=== PATIENT | female | born 1935 | race Caucasian/White ===

== ENCOUNTER → 2016-06-01 | Outpatient (CLI) | payer OTHER, MEDICARE ==
[~2016-06-01] MED LIST: IOPAMIDOL (ISOVUE-300) 100 ML BTL IV ONE
== END ==
LOC: FIMAGING 12:58
PROVIDERS: ATTEND Internal Medicine
DX: K86.89 Other specified diseases of pancreas (principal); N20.0 Calculus of kidney
CPT/HCPCS: 74178; Q9967

== ENCOUNTER → 2016-09-23 | Outpatient (CLI) | payer OTHER, MEDICARE | LOC: BMCIMAGING 10:11 | PROVIDERS: ATTEND Physician Assistant | DX: M25.562 Pain in left knee (principal); G89.29 Other chronic pain; M17.12 Unilateral primary osteoarthritis, left knee ==

== ENCOUNTER 2017-02-14 08:45 | Inpatient (IN) | payer OTHER, MEDICARE ==
[2017-02-28] MEDS ORDERED: LIDOCAINE 1% 2 ML INJ ONE (05:59)
[2017-02-28] MEDS ORDERED: LIDOCAINE 1% 2 ML INJ ID PRN (06:06)
[2017-02-28] MEDS ORDERED: LR 1,000 ML IV ONE (06:06)
[2017-02-28] MEDS ORDERED: ACETAMINOPHEN 500 MG TAB PO ONE (06:06)
[2017-02-28] MEDS ORDERED: LR 1,000 ML IV SCH (06:06)
[2017-02-28] MEDS ORDERED: ceFAZolin 2 GM/SWFI 2 GM/20 ML SYR IVP ONE (06:06)
--- NOTE | 2017-02-28 06:31 | PDHPUP ---
History & Physical Update H&P update statement: This history and physical update is based on an assessment of the patient which was completed after admission or registration (within 24 hours), but prior to the surgery/procedure.
--- NOTE | 2017-02-28 06:33 | PDIAF ---
- Diagnosis Diagnosis: left shoulder djd Code Status: Full Code - Medication Management Discharge Medications: Medications to Continue on Transfer Pantoprazole Sodium [Protonix 40mg (*)] 40 mg PO DAILY 03/05/09 [Last Taken 02/27] celeCOXIB [Celebrex (*)] 200 mg PO DAILY 03/05/09 [Last Taken 02/22/17] Calcium Carbonate/Vitamin D3 [CALCIUM 600 + VIT D TABLET] 1 each PO DAILY [Last Taken 02/22/17] Carboxymethylcellulose 1% [Refresh Celluvisc (*)] 1 drop EACHEYE DAILY PRN 01/25 [Last Taken 02/22/17] Cyanocobalamin [Vitamin B12 (*)] 1,000 mcg PO DAILY 01/25/17 [Last Taken ] Cyclobenzaprine [Flexeril 10 MG (*)] 5 - 10 mg PO HS 01/25/17 [Last Taken ] Herbals/Supplements -Info Only 1 ea PO DAILY 01/25/17 [Last Taken 02/22/17] Sertraline HCl [Zoloft 25mg (*)] 25 mg PO DAILY 01/25/17 [Last Taken 02/22/17] Discharge Medications: Refer to the Discharge Home Medication list for PRN reason. - Orders Services needed: Home Care, Physical Therapy, Occupational Therapy Home Care Face to Face: I certify that this patient was under my care and that I had the required [id number] encounter meeting the encounter requirements on the discharge day. My findings support the fact that the patient is homebound as defined in Home Care Face to Face Continued: CMS Chapter 7 Medicare Benefits Manual 30.1.1 , The condition of the patient is such that there exists a normal inability to leave home and consequently, leaving home would require a considerable and taxing effort. Activity/Weight Bearing Restrictions: pendulum rom. daily dressing changes. no lifting, pushing, pulling. f/u at two weeks as previously scheduled. seek attn for increasing pain, numbness, tingling, other focal complaints - Follow Up Care Current Providers and Referrals: Analy Orta MD [Primary Care Provider] -
[2017-02-28] MEDS ORDERED: D5W 1/2 NS W/ 20 KCl/L 1,000 ML IV SCH (06:45)
[2017-02-28] MEDS ORDERED: ONDANSETRON 4 MG/2 ML VIAL IVP PRN ×2 (06:45→07:57)
[2017-02-28] MEDS ORDERED: KETOROLAC 15 MG/1 ML SDV IVP ONE (06:45)
[2017-02-28] MEDS ORDERED: CARBOXYMETHYLCELLULOSE 1% 0.4 ML DROPERETTE EACHEYE PRN (06:48)
[2017-02-28] MEDS ORDERED: BUPIVACAINE/EPI 0.5% 30 ML SDV ONE (06:51)
[2017-02-28] MEDS ORDERED: PROPOFOL 200 MG/20 ML VIAL ONE (06:52)
[2017-02-28] MEDS ORDERED: MIDAZOLAM 2 MG/2 ML VIAL ONE (06:52)
[2017-02-28] MEDS ORDERED: BACITRACIN 50,000 UNITS/10 ML SYR IRR ONE (06:52)
[2017-02-28] MEDS ORDERED: fentaNYL 100 MCG/2 ML INJ ONE ×2 (06:52)
[2017-02-28] MEDS ORDERED: POLYMYXIN B SULFATE 500,000 UNIT/10 ML SYR IRR ONE (06:52)
--- NOTE | 2017-02-28 07:15 | PDANEPAE ---
ANE History of Present Illness left shoulder oa ANE Past Medical History - Cardiovascular History Hx Hypertension: No Hx Arrhythmias: No Hx Chest Pain: No Hx Coronary Artery / Peripheral Vascular Disease: No Hx CHF / Valvular Disease: No Hx Palpitations: No - Pulmonary History Hx COPD: No Hx Asthma/Reactive Airway Disease: No Hx Recent Upper Respiratory Infection: No Hx Oxygen in Use at Home: No Hx Sleep Apnea: Yes Sleep Apnea Screening Result - Last Documented: Positive Pulmonary History Comment: JIAN USES C-PAP INSTRUCTED TO BRING DOS. CHILDHOOD ASTHMA - Neurologic History Hx Cerebrovascular Accident: No Hx Seizures: No Hx Dementia: No - Endocrine History Hx Diabetes: No - Renal History Hx Renal Disorders: No Renal History Comment: PREV LITHOTRIPSY - Liver History Hx Hepatic Disorders: No - Neurological & Psychiatric Hx Hx Neurological and Psychiatric Disorders: Yes Neurological / Psychiatric History Comment: ANXIETY - Cancer History Hx Cancer: No - Congenital Disorder History Hx Congenital Disorders: No - GI History Hx Gastrointestinal Disorders: No - Other Health History Other Health History: OSTEOARTHRITIS - Chronic Pain History Chronic Pain: Yes (LT SHLDR) - Surgical History Prior Surgeries: ABILIO TOTAL HIP. RT TOTAL SHLDR. RT TOTAL KNEE. HYSTERECTOMY. LITHOTRIPSY. TONSILLECTOMY. ABILIO CATARACT ANE Review of Systems Review of Systems: - Exercise capacity METS (RN): 4 METS ANE Patient History - Allergies Allergies/Adverse Reactions: codeine [Codeine] Allergy (Severe, Verified 07/02/09 09:50) Itching - Home Medications Home Medications: Pantoprazole Sodium [Protonix 40mg (*)] 40 mg PO DAILY 03/05/09 [Last Taken 02/27] celeCOXIB [Celebrex (*)] 200 mg PO DAILY 03/05/09 [Last Taken 02/22/17] Calcium Carbonate/Vitamin D3 [CALCIUM 600 + VIT D TABLET] 1 each PO DAILY [Last Taken 02/22/17] Carboxymethylcellulose 1% [Refresh Celluvisc (*)] 1 drop EACHEYE DAILY PRN 01/25 [Last Taken 02/22/17] Cyanocobalamin [Vitamin B12 (*)] 1,000 mcg PO DAILY 01/25/17 [Last Taken ] Cyclobenzaprine [Flexeril 10 MG (*)] 5 - 10 mg PO HS 01/25/17 [Last Taken ] RX: Herbals/Supplements -Info Only 1 ea PO DAILY 01/25/17 [Last Taken 02/22/17] Sertraline HCl [Zoloft 25mg (*)] 25 mg PO DAILY 01/25/17 [Last Taken 02/22/17] - NPO status NPO Status: no food or drink >8 hours NPO Since - Liquids (Date): 02/27/17 NPO Since - Liquids (Time): 17:30 NPO Since - Solids (Date): 02/27/17 NPO Since - Solids (Time): 17:30 - Smoking Hx Smoking Status: Never smoked ANE Labs/Vital Signs - Vital Signs Vital Signs: reviewed preoperatively; see RN documention for details Blood Pressure: 164/81 Heart Rate: 77 Respiratory Rate: 16 O2 Sat (%): 93 Height: 149.86 cm Weight: 70.76 kg ANE Physical Exam - Airway Neck exam: decreased ROM Mallampati Score: Class 2 - Pulmonary Pulmonary: no respiratory distress - Cardiovascular Cardiovascular: regular rate and rhythym - ASA Status ASA Status: II ANE Anesthesia Plan Anesthesia Plan: general endotracheal anesthesia Regional Anesthesia: interscalene BP NB
[2017-02-28] MEDS ORDERED: HYDROmorphONE/DILAUDID 1 MG/ML INJ IVP PRN (07:57)
[2017-02-28] MEDS ORDERED: fentaNYL 100 MCG/2 ML INJ IVP PRN (07:57)
[2017-02-28] MEDS ORDERED: PROMETHAZINE HCL 25 MG/ML INJ IVP PRN (07:57)
[2017-02-28] MEDS ORDERED: OXYCODONE/APAP 5/325 TAB PO PRN (07:57)
[2017-02-28] MEDS ORDERED: NALOXONE HCL 0.4 MG/ML INJ IVP PRN (07:57)
[2017-02-28] MEDS ORDERED: ONDANSETRON 4 MG/2 ML VIAL ONE (08:00)
[2017-02-28] MEDS ORDERED: ROCURONIUM 50 MG/5 ML VIAL ONE (08:00)
[2017-02-28] MEDS ORDERED: DEXAMETHASONE 4 MG/ML VIAL ONE (08:00)
[2017-02-28] MEDS ORDERED: PHENYLEPHRINE HCL 100 MCG/ML SYR ONE (08:00)
[2017-02-28] MEDS ORDERED: epHEDrine SULFATE 10 MG/ML SYR ONE (08:00)
[2017-02-28] MEDS ORDERED: ROPIVACAINE HCL 150 MG/30 ML INJ ONE (08:00)
--- NOTE | 2017-02-28 09:00 | POSTANESTH ---
Post Anesthetic Evaluation Cardiovascular Status: Normal, Stable Respiratory Status: Normal, Stable Level of Consciousness/Mental Status: Can Participate in Eval Pain Control: Adequate, Prn Tx Ordered Nausea/Vomiting Control: Adequate, Prn Tx Ordered Complications Possibly Related to Anesthesia: None Noted
[2017-02-28] MEDS ORDERED: MIDAZOLAM 2 MG/2 ML VIAL IVP ONE (09:30)
--- NOTE | 2017-02-28 09:30 | PDANEPAE ---
ANE History of Present Illness r knee oa ANE Past Medical History - Cardiovascular History Hx Hypertension: No Hx Arrhythmias: No Hx Chest Pain: No Hx Coronary Artery / Peripheral Vascular Disease: No Hx CHF / Valvular Disease: No Hx Palpitations: No - Pulmonary History Hx COPD: No Hx Asthma/Reactive Airway Disease: No Hx Recent Upper Respiratory Infection: No Hx Oxygen in Use at Home: No Hx Sleep Apnea: Yes Sleep Apnea Screening Result - Last Documented: Positive Pulmonary History Comment: JIAN USES C-PAP INSTRUCTED TO BRING DOS. CHILDHOOD ASTHMA - Neurologic History Hx Cerebrovascular Accident: No Hx Seizures: No Hx Dementia: No - Endocrine History Hx Diabetes: No - Renal History Hx Renal Disorders: No Renal History Comment: PREV LITHOTRIPSY - Liver History Hx Hepatic Disorders: No - Neurological & Psychiatric Hx Hx Neurological and Psychiatric Disorders: Yes Neurological / Psychiatric History Comment: ANXIETY - Cancer History Hx Cancer: No - Congenital Disorder History Hx Congenital Disorders: No - GI History Hx Gastrointestinal Disorders: No - Other Health History Other Health History: OSTEOARTHRITIS - Chronic Pain History Chronic Pain: Yes (LT SHLDR) - Surgical History Prior Surgeries: ABILIO TOTAL HIP. RT TOTAL SHLDR. RT TOTAL KNEE. HYSTERECTOMY. LITHOTRIPSY. TONSILLECTOMY. ABILIO CATARACT ANE Review of Systems Review of Systems: - Exercise capacity METS (RN): 4 METS ANE Patient History - Allergies Allergies/Adverse Reactions: codeine [Codeine] Allergy (Severe, Verified 07/02/09 09:50) Itching - Home Medications Home Medications: Pantoprazole Sodium [Protonix 40mg (*)] 40 mg PO DAILY 03/05/09 [Last Taken 02/27] celeCOXIB [Celebrex (*)] 200 mg PO DAILY 03/05/09 [Last Taken 02/22/17] Calcium Carbonate/Vitamin D3 [CALCIUM 600 + VIT D TABLET] 1 each PO DAILY [Last Taken 02/22/17] Carboxymethylcellulose 1% [Refresh Celluvisc (*)] 1 drop EACHEYE DAILY PRN 01/25 [Last Taken 02/22/17] Cyanocobalamin [Vitamin B12 (*)] 1,000 mcg PO DAILY 01/25/17 [Last Taken ] Cyclobenzaprine [Flexeril 10 MG (*)] 5 - 10 mg PO HS 01/25/17 [Last Taken ] Herbals/Supplements -Info Only 1 ea PO DAILY 01/25/17 [Last Taken 02/22/17] Sertraline HCl [Zoloft 25mg (*)] 25 mg PO DAILY 01/25/17 [Last Taken 02/22/17] - NPO status NPO Since - Liquids (Date): 02/27/17 NPO Since - Liquids (Time): 17:30 NPO Since - Solids (Date): 02/27/17 NPO Since - Solids (Time): 17:30 - Smoking Hx Smoking Status: Never smoked ANE Labs/Vital Signs - Vital Signs Vital Signs: reviewed preoperatively; see RN documention for details Blood Pressure: 138/69 Heart Rate: 77 Respiratory Rate: 16 O2 Sat (%): 97 Height: 149.86 cm Weight: 70.76 kg ANE Physical Exam - Airway Neck exam: FROM Mallampati Score: Class 1 Mouth exam: normal dental/mouth exam - Pulmonary Pulmonary: no respiratory distress - Cardiovascular Cardiovascular: regular rate and rhythym - ASA Status ASA Status: II ANE Anesthesia Plan Anesthesia Plan: general endotracheal anesthesia Regional Anesthesia: adductor canal FNB
[2017-02-28] MEDS: DOCUSATE SODIUM 100 MG CAP PO SCH ×2 (12:00→21:09)
[2017-02-28] MEDS: ASPIRIN EC 325 MG TAB PO SCH (12:00)
[2017-02-28] MEDS: SERTRALINE HCL 25 MG TAB PO SCH (12:01)
[2017-02-28] MEDS: PANTOPRAZOLE SODIUM 40 MG TAB PO SCH (12:01)
[2017-02-28] MEDS: KETOROLAC 15 MG/1 ML SDV IVP SCH ×3 (12:13→23:26)
[2017-02-28] MEDS: ceFAZolin 2 GM/DEXTROSE 100 ML IV SCH ×2 (13:54→21:09)
[2017-02-28] MEDS ORDERED: TEMAZEPAM 15 MG CAP PO SCH (23:15)
[2017-03-01] MEDS: HYDROCODONE/APAP 5/325 TAB PO PRN ×2 (03:29→06:16)
[2017-03-01] MEDS: KETOROLAC 15 MG/1 ML SDV IVP SCH (06:15)
--- NOTE | 2017-03-01 07:25 | PDIAF ---
- Diagnosis Diagnosis: left shoulder djd Code Status: Full Code - Medication Management Discharge Medications: Medications to Continue on Transfer Pantoprazole Sodium [Protonix 40mg (*)] 40 mg PO DAILY 03/05/09 [Last Taken 02/27] celeCOXIB [Celebrex (*)] 200 mg PO DAILY 03/05/09 [Last Taken 02/22/17] Calcium Carbonate/Vitamin D3 [CALCIUM 600 + VIT D TABLET] 1 each PO DAILY [Last Taken 02/22/17] Carboxymethylcellulose 1% [Refresh Celluvisc (*)] 1 drop EACHEYE DAILY PRN 01/25 [Last Taken 02/22/17] Cyanocobalamin [Vitamin B12 (*)] 1,000 mcg PO DAILY 01/25/17 [Last Taken ] Cyclobenzaprine [Flexeril 10 MG (*)] 5 - 10 mg PO HS 01/25/17 [Last Taken ] Herbals/Supplements -Info Only 1 ea PO DAILY 01/25/17 [Last Taken 02/22/17] Sertraline HCl [Zoloft 25mg (*)] 25 mg PO DAILY 01/25/17 [Last Taken 02/22/17] Aspirin EC [Aspirin EC 325 mg (*)] 325 mg PO DAILY tab 03/01/17 [Last Taken Unknown] Hydrocodone/APAP 5/325 [[place] 5/325 (*)] 1 - 2 tab PO Q3HRS PRN #70 tab [Last Taken Unknown] Discharge Medications: Refer to the Discharge Home Medication list for PRN reason. - Orders Services needed: Home Care, Physical Therapy, Occupational Therapy Home Care Face to Face: I certify that this patient was under my care and that I had the required [id number] encounter meeting the encounter requirements on the discharge day. My findings support the fact that the patient is homebound as defined in Home Care Face to Face Continued: CMS Chapter 7 Medicare Benefits Manual 30.1.1 , The condition of the patient is such that there exists a normal inability to leave home and consequently, leaving home would require a considerable and taxing effort. Diet Recommendation: no restrictions on diet Diet Texture: Regular Texture Diet Activity/Weight Bearing Restrictions: pendulum rom. daily dressing changes. no lifting, pushing, pulling. f/u at two weeks as previously scheduled. seek attn for increasing pain, numbness, tingling, other focal complaints - Follow Up Care Current Providers and Referrals: Analy Orta MD [Primary Care Provider] - Terrance Villasenor MD [Medical Doctor] -
[2017-03-01 07:46] VITALS: RESP 16
[2017-03-01] MEDS: ASPIRIN EC 325 MG TAB PO SCH (08:21)
[2017-03-01] MEDS: DOCUSATE SODIUM 100 MG CAP PO SCH (08:21)
[2017-03-01] MEDS: PANTOPRAZOLE SODIUM 40 MG TAB PO SCH (08:21)
[2017-03-01] MEDS: SERTRALINE HCL 25 MG TAB PO SCH (08:24)
[2017-03-01] MEDS ORDERED: ONDANSETRON DISINTEGRATING 4 MG TAB PO PRN (10:32)
--- NOTE | 2017-03-01 10:43 | SOAPPROG ---
SOAP Progress Note Assessment/Plan: Assessment: Pt s/p reverse shoulder surgery. Procedure uneventful but after signing off pt in recovery room pt, spit out her lower incisor. Most likely dislodged by biting on oral airway during transport to PACU. Pt seen today and evaluated. Plan: 03/01/17 10:40 I will follow up with the patient next week regarding assessment of dental work needed to fix the broken tooth Objective: Vital Signs Temp Pulse Resp BP Pulse Ox 36.6 C 79 16 133/67 H 99 03/01/17 07:45 03/01/17 07:45 03/01/17 07:45 03/01/17 07:45 03/01/17 07:45 02/28/17 03/01/17 03/02/17 05:59 05:59 05:59 Intake Total 950 Output Total 700 300 Balance 250 -300 - Pending Discharge Pending Discharge Within 24 Hours: Yes Pending Discharge Date: 03/02/17 Pending Discharge Time: 11:00 Physical Exam - Physical Exam General Appearance: WD/WN (pt comfortable in no distress) ICD10 Worksheet Patient Problems: Problems Problem Status Onset Status post shoulder replacement Acute - ICD10 Problem Qualifiers (1) Status post shoulder replacement
--- NOTE | 2017-03-01 10:45 | ASMTCMCOM ---
CM Note CM Note Notes: Met with patient and regarding discharge plan of care. Patient has had home health care in the past but now lives in [place] and requesting [facility]. Referral/orders sent to [facility], confirmed with Binta in their intake they are able to accept patient for PT/OT. Discussed with PT. plans on obtaining shower chair from loan closet in the area. Confirmed patient's address/phone number. Current Discharge Plan: Discharge home today with [facility]. to transport back home. Case Management available for any further needs. Date Signed: 03/01/2017 10:45 AM Electronically Signed By:Rosemarie Ch RN
[2017-03-01 11:16] VITALS: BP 123/74; PULSE 71; TEMP 96.8; O2SAT 92
[2017-03-01] MEDS ORDERED: oxyCODONE IR 5 MG TAB PO PRN (11:20)
--- NOTE | 2017-03-01 14:30 | ASDISCHSUM ---
Discharge Information Plan Status:Home with Home Health Medically Cleared to Leave: Discharge Date:03/01/2017 01:12 PM CM D/C Disposition:Home Health Service ADT D/C Disposition:Home Health Service Projected Discharge Date:03/01/2017 11:00 AM Transportation at D/C: Discharge Delay Reason: Follow-Up Date:03/01/2017 11:00 AM Discharge Slot: Final Diagnosis: Placement Information Referral Type:*Home Health Care Services Referral ID:[id number] Provider Name: [facility] [place] Address 1:[address] Address 2: City:[place] Selection Factors: State:[place] Patient Contact Information Contact Name:MAMIE Relationship: Address:[address] [place] [address] City:[place] Alternate Phone: State/Zip Code:[place] [address] Email: Financial Information Financial Class: Primary Plan Desc:MEDICARE INPATIENT Primary Plan Number:[id number] Secondary Plan Desc:[employer]/MDR SUPPLEMENT Secondary Plan Number:[id number] Assessment Information [facility] CM Progress Note CM Note CM Note Notes: Met with patient and regarding discharge plan of care. Patient has had home health care in the past but now lives in [place] and requesting [facility]. Referral/orders sent to [facility], confirmed with Binta in their intake they are able to accept patient for PT/OT. Discussed with PT. plans [facility]. Confirmed patient's address/phone number. Current Discharge Plan: Discharge home today with [facility]. to transport back home. Case Management available for any further needs. Date Signed: 03/01/2017 10:45 AM Electronically Signed By:Rosemarie Ch RN Intervention Information
--- NOTE | 2017-03-01 15:45 | GDS ---
[f rep st] DISCHARGE SUMMARY ADMISSION DIAGNOSIS: Left shoulder rotator cuff arthropathy. POSTOPERATIVE DIAGNOSIS: Left shoulder rotator cuff arthropathy. PROCEDURE: Left reverse total shoulder arthroplasty. OPERATIVE INDICATIONS: Patient is an 81-year-old woman who has end-stage arthritis and rotator cuff damage to her left shoulder. Clinical and radiographic features are consistent with this. She has f vega all attempts at conservative management. I have recommended operative intervention. I have ou tlined the surgical procedure, risks, benefits, and alternatives. She wished to proceed. Written co nsent was signed and placed in patient's chart. HOSPITAL COURSE: The patient was admitted to the hospital floor after uncomplicated total shoulder a rthroplasty. She tolerated the procedure well. She did have an interscalene block. Her postoperati ve course was marked by issues of anesthesia. Intraoperatively, she knocked out 1 of her teeth durin g the extubation process, and this was discussed with her by the anesthesiologist. At the time of di jayjay, she is tolerating an oral diet. Pain is well controlled on oral medicine. She is voiding w ithout difficulty. Dressing is clean, dry, and intact. She has intact axillary, radial, ulnar, medi an nerve motor and sensory function. DISCHARGE ACTIVITY: Pendulum range of motion. Sling at all times. Otherwise daily dressing changes . No soaking or immersion. May shower without the bandage. FOLLOWUP: In 2 weeks. Seek attention for increasing redness, swelling, drainage, discharge, or othe r focal complaints. DISCHARGE MEDICATIONS: 1. [place] 5/325 take 1-2 every 4 hours p.r.n. pain. 2. Aspirin 325 mg p.o. daily. Copy requested to: Primary care physician /[id number]/MODL
--- NOTE | 2017-03-03 10:09 | GOP ---
[f rep st] OPERATIVE REPORT DATE OF OPERATION: 02/28/2017 SURGEON: Terrance Villasenor MD SHUFFLE BOARD OPERATOR: Ivett Huang PA-C. PREOPERATIVE DIAGNOSIS: Left shoulder rotator cuff arthropathy. POSTOPERATIVE DIAGNOSIS: Left shoulder rotator cuff arthropathy. PROCEDURE PERFORMED: Left reverse total shoulder arthroplasty. FINDINGS: INDICATIONS: Vani Foster is an 81-year-old woman who is known to me for previous right total mojgan ulder replacement. She has end-stage arthritis and rotator cuff arthropathy to her left shoulder. C linical and radiographic features are consistent with this. She has failed all attempts at conservat emily management. I have therefore recommended operative intervention with reverse total shoulder arth roplasty. She understood the risks, benefits, alternatives, and wished to proceed. Written consent was signed and placed in patient's chart. DESCRIPTION OF PROCEDURE: The patient was identified in the preanesthesia area. The area of the lef t shoulder was clearly demarcated as the operative site with an indelible marker. She was given 2 g of Ancef intravenously en route to the operative suite. In the OR, general endotracheal anesthesia w as administered and interscalene block had been placed for postoperative analgesia. In the OR, she w as positioned in the beach chair position. All bony prominences were well padded, including use of a neurological heading saw operator. An appropriate time-out procedure was carried out. The left upper extrem ity was sterilely prepped and draped in the usual fashion. An anterior deltopectoral incision was ma de. Thick subcutaneous flaps were elevated. The cephalic vein retracted medially with a small slive r of the deltoid muscle. The deltoid was then elevated and retracted laterally. A self-retaining re tractor was placed deep to the conjoint tendon. The arm was externally rotated, and the subscapulari s elevated off with the capsule from the anterior surface. The biceps was tagged for later incorpora tion into the repair and the rotator cuff interval opened allowing exposure of the underlying glenohu meral joint. Inferior capsule was reflected and retractors placed both superiorly and inferiorly. T he head was delivered through the wound. There was gross eburnation of the bone with large marginal osteophyte. The bony cut for a reverse shoulder was then made, the head fragment withdrawn, the infe rior osteophyte withdrawn, and retractors placed to facilitate visualization of the underlying glenoi d. A pin was placed in the central inferior aspect and the surrounding periphery reamed to a flush s urface. A Metaglene component was secured using 3 locking screws, one nonlocking screw and a 42 mm G lenosphere placed. This was confirmed to be fully seated across the taper. Attention was returned t o the proximal humerus. This was reamed to a size 12 stem. A size 1 epiphysis was then placed and a trial reduction carried out. A size 1 epiphysis and 12 stem were assembled on the back table and im pacted across the open surface of the humerus. Ultimately a 6 mm polyethylene spacer was selected. T his was impacted and confirmed to be fully seated. The shoulder was reduced and taken through full r babita of motion without instability. The wound was copiously irrigated with pulsatile lavage solution and the subscapularis repaired through bone tunnels across the anterior aspect of the humerus. This incorporated the biceps in a tenodesis fashion. The subcutaneous tissue was closed in layers using 0 Vicryl, 2-0 Monocryl, and dayna. The margins were instilled with a joint cocktail of ropivacaine, morphine, Toradol, and epinephrine. A sterile dressing was applied. The patient was placed in a Cr yo/Cuff shoulder immobilizer, awakened and taken to the recovery room in good stable condition. TOTAL TOURNIQUET TIME: None. COMPLICATIONS: None. SPECIMENS TO PATHOLOGY: The humeral head. IMPLANTS: The DePuy Delta Extend size 1 epiphysis, size 12 stem. Metaglene 4 screws and a 42 mm Dalton osphere with a 6 mm polyethylene. DISPOSITION: To the recovery room, then the floor. She is pendulum range of motion for 2 weeks and will follow standard reverse shoulder recovery. /[id number]/MODL
== END 2017-03-01 13:12 | disposition home health service (06) | DRG 483 ==
LOC: F3N 02-28 05:33
PROVIDERS: ADMIT Orthopaedic Surgery; ATTEND Orthopaedic Surgery
PROC: 0RRK00Z Replacement of Left Shoulder Joint with Reverse Ball and Socket Synthetic Substitute, Open Approach (ICD-10-PCS; principal; 2017-02-27)
DX: M19.012 Primary osteoarthritis, left shoulder (principal); S02.5XXA Fracture of tooth (traumatic), initial encounter for closed fracture; Y70.0 Diagnostic and monitoring anesthesiology devices associated with adverse incidents; Y92.234 Operating room of hospital as the place of occurrence of the external cause; M35.00 Sjogren syndrome, unspecified; G47.30 Sleep apnea, unspecified; E78.5 Hyperlipidemia, unspecified; Z96.611 Presence of right artificial shoulder joint; Z96.643 Presence of artificial hip joint, bilateral; Z96.651 Presence of right artificial knee joint
CPT/HCPCS: 97116-GP; 97161-GP; 97165-GO; C1713; G8978-GP-CI; G8979-GP-CI; G8980-GP-CI; G8987-GO-CK; G8988-GO-CJ; J0690; J1100; J1885; J2250; J2370; J2405; J2704; J2795; J3010

== ENCOUNTER → 2017-02-25 | Outpatient (CLI) | payer OTHER, MEDICARE | LOC: CIMAGING 13:47 | PROVIDERS: ATTEND Internal Medicine | DX: Z12.31 Encounter for screening mammogram for malignant neoplasm of breast (principal) | CPT/HCPCS: G0202 ==

== ENCOUNTER → 2017-04-12 | Outpatient (CLI) | payer OTHER, MEDICARE | LOC: BMCIMAGING 14:19 | PROVIDERS: ATTEND Physician Assistant | DX: Z47.1 Aftercare following joint replacement surgery (principal); Z96.612 Presence of left artificial shoulder joint ==

== ENCOUNTER → 2017-04-29 | Outpatient (CLI) | payer OTHER, MEDICARE | LOC: BMCIMAGING 12:43 | PROVIDERS: ATTEND Physician Assistant | DX: Z09 Encounter for follow-up examination after completed treatment for conditions other than malignant neoplasm (principal); Z96.612 Presence of left artificial shoulder joint ==

== ENCOUNTER → 2017-07-25 | Outpatient (CLI) | payer OTHER, MEDICARE | LOC: FIMAGING 09:53 | PROVIDERS: ATTEND Orthopaedic Surgery | DX: M17.12 Unilateral primary osteoarthritis, left knee (principal) ==

== ENCOUNTER → 2017-07-27 | Outpatient (CLI) | payer OTHER, MEDICARE | LOC: BMCIMAGING 10:21 | PROVIDERS: ATTEND Orthopaedic Surgery | DX: Z96.612 Presence of left artificial shoulder joint (principal) ==

== ENCOUNTER → 2018-03-31 | Outpatient (CLI) | payer OTHER, MEDICARE | END | disposition home or self-care (01) | LOC: BMCIMAGING 11:20 | PROVIDERS: ATTEND Internal Medicine | DX: Z12.31 Encounter for screening mammogram for malignant neoplasm of breast (principal) ==